=== PATIENT | female | born 1990 | race Caucasian/White ===

== ENCOUNTER → 2018-02-16 | Outpatient (CLI) | payer OTHER | END | disposition home or self-care (01) | LOC: KCIC US 08:01 | DX: R19.09 Other intra-abdominal and pelvic swelling, mass and lump (principal); R10.2 Pelvic and perineal pain | CPT/HCPCS: 76830; 76856 ==

== ENCOUNTER → 2019-03-22 | Outpatient (CLI) | payer OTHER ==
[2014-05-19 14:20] VITALS: BP 123/78
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
== END | disposition home or self-care (01) ==
LOC: KCIC 16:01
PROVIDERS: ATTEND Family Medicine
DX: M25.572 Pain in left ankle and joints of left foot (principal)
CPT/HCPCS: 73610; 73630